=== PATIENT | male | born 1940 | race Caucasian/White ===

== ENCOUNTER 2023-08-02 11:10 | Outpatient (RCR) | payer MEDICARE, SELFPAY | END 2023-08-03 16:51 | disposition home or self-care (01) | LOC: OT 11:10 | PROVIDERS: PCP Orthopaedic Surgery; Visit Provider Orthopaedic Surgery | DX: M72.0 Palmar fascial fibromatosis [Dupuytren] (principal) | CPT/HCPCS: 97165; 97760 ==

== ENCOUNTER 2024-04-24 11:52 | Day surgery (SDC) | payer MEDICARE, SELFPAY ==
--- OUTSIDE RECORDS SUMMARY | 2024-04-24 12:09 | XMS_ITS | CCD ---
Author Organization [facility] CliniSynd Care Team Providers Care 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 Name Role Phone Chandrika SHELTON, Justin Munson Primary Care Provider Unavail able Unavailable Primary Care Provider Unavailmami Vergara MD, Margaux Shirlene Primary Care Provider Jai SHELTON, [facility] Primary Care Provider Erika Silveira Primary Care Physician Erika Montana Unavailable Unavailable ART HAYNES Referring Unavailable JAI, MARGAUX Shirlene Primary Care Unavailable JAI, MARGAUX Garber Primary Care Unavailable GLENN SAUCEDA Referring Unavailable Jai SHELTON, [facility] Primary Care Provider [phone] Radha Olvera MD Primary Care Provider Mario COMMUNITY SERVICE REPRESENTATIVE, [place] Reid Unavailable JAMAICA MARTIN Attending Unavailab le FELTERIKA BLOCK Attending Unavailable JAMAICA MARTIN Attending Unavailab le SERVICE, JOBSBirdie Referring Unavailable JAI, MARGAUX F Primary Care Unavailable SERVICE, JOBST Referring Unavailable JAI, MARGAUX Garber Primary Care Unavailable JAI, MARGAUX Garber Primary Care Unavailable JAI, MARGAUX F Referring Unavailable SERVICE, JOBST Referring Unavailable JAI, MARGAUX F Primary Care Unavailable SERVICE, JOBST Referring Unavailable JAI, MARGAUX F Primary Care Unavailable SERVICE, JOBST Referring Unavailable JAI, MARGAUX F Primary Care Unavailable SERVICE, JOBST Referring Unavailable JAI, MARGAUX F Primary Care Unavailable SERVICE, JOBST Referring Unavailable JAI, MARGAUX F Primary Care Unavailable JAI, MARGAUX F Referring Unavailable JAI, MARGAUX F Primary Care Unavailable MICI, SILVANA Attending Unavailable JAI, MARGAUX F Primary Care Unavailable MICI, SILVANA Referring Unavailable JAI, MARGAUX F Primary Care Unavailable MICI, SILVANA Attending Unavailable MICI, SILVANA Referring Unavailable Medications Current Medications Medication Drug Class(es) Dates Sig (Normalized) Sig (Original) acetaminophen 500 mg oral tablet (12 sources) take 1 tablet by mouth every six hours as needed for pain acetaminophen (TYLENOL) 500 mg tablet Take 1 tablet (500 mg total) by mouth every 6 (six) hours as needed for pain. As needed for pain Active ciprofloxacin 500 mg oral tablet (1 source) Quinolone Antimicrobial Start: 09-06-2020 End: 09-16-2020 take 1 tablet by mouth twice daily ciprofloxacin (CIPRO) 500 MG tablet Take 1 tablet by mouth 2 times daily for 10 days 20 tablet 0 09/06/2020 09/16/2020 Active furosemide 40 mg oral tablet (17 sources) Loop Diuretic Start: 09-25-2021 End: 04-06-2024 take 1 tablet by mouth once daily furosemide (LASIX) 40 mg tablet Indications: Chronic diastolic congestive heart failure (CMS-HCC) Take 1 tablet (40 mg total) by mouth daily. 90 tablet 3 04/06/2024 Active Start: 08-11-2019 take 1 tablet by jalyn twice daily furosemide (LASIX) 40 mg tablet Indications: Essential hypertension Take 1 tablet (40 mg total) by mouth 2 (two) times a day. 180 tablet 0 12/16/2022 Active metoprolol tartrate 50 mg oral tablet (17 sources) beta-Adrenergic Feng Start: 09-05-2019 End: 04-06-2024 take 1 tablet by mouth in the morning, then take 1 tablet by mouth at bedtime metoprolol tartrate (LOPRESSOR) 50 mg tablet Indications: Essential hypertension Take 1 tablet (50 mg total) by mouth in the morning and 1 tablet (50 mg total) before bedtime. 180 tablet 3 04/06/2024 Active tamsulosin hydrochloride 0.4 mg oral capsule (16 sources) alpha-Adrenergic Feng Start: 09-06-2020 take 1 capsule by mouth in the morning tamsulosin (FLOMAX) 0.4 mg capsule Take 1 capsule (0.4 mg total) by mouth in the morning. 09/06/2020 Active Start: 09-06-2020 take 1 capsule by mo uth in the morning tamsulosin (FLOMAX) 0.4 mg capsule Take 1 capsule (0.4 mg total) by mouth in the morning. 09/06/2020 Active Start: 09-06-2020 take 1 capsule by mo ut twice daily tamsulosin (FLOMAX) 0.4 MG capsule Take 1 capsule by mouth 2 times daily 60 capsule 3 09/06/2020 Active triamcinolone acetonide 0.001 mg/mg topical ointment (9 sources) Corticosteroid Start: 06-02-2023 triamcinolone (Kenalog) 0.1 % ointment Indications: Other atopic dermatitis Apply thin layer to affected areas on the body twice a day as needed for flares, hold if clear 454 g 2 06/02/2023 Active triamcinolone (K ENALOG) 0.1 % ointment Apply 1 Application topically in the morning and 1 Application before bedtime. Active warfarin sodium 5 mg oral tablet (16 sources) Vitamin K Antagonist Start: 07-29-2022 take 2 tablets by mouth once daily warfarin (COUMADIN) 5 mg tablet Indications: Paroxysmal atrial fibrillation (CMS-HCC) , Hx pulmonary embolism , senior care (current) use of anticoagulants Take 1 to 2 tablets (5mg to 10mg) by mouth daily as directed by Fabienne PERALES (Medication Therapy Management). 180 tablet 3 08/17/2023 Active Start: 05-30-2019 take 1-2 tablets by mouth in the evening warfarin (COUMADIN) 5 mg tablet Indications: Paroxysmal atrial fibrillation (CMS-HCC) , Hx pulmonary embolism , senior care (current) use of anticoagulants Take 1-2 tablets (5-10 mg total) by mouth in the evening. As directed by Fabienne PERALES (Medication Therapy Management).. 180 tablet 3 07/29/2022 Active Completed/Discontinued Medications Medication Drug Class(es) Dates Sig (Normalized) Sig (Original) collagenase clostridium histolyticum 0.9 mg injection (9 sources) collagenase clos tridium histo. (XIAFLEX) 0.9 mg recon soln 0.58 mg by intralesional route once. 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] Onset: 03-08-2019 03-08-2019 Chronic Congestive heart failure; nonhypertensive (20 sources) Chronic diastolic heart failure; Translations: [Chronic diastolic (congestive) heart failure] Onset: 12-22-2018 Resolved: 08-01-2019 12-22-2018 Chronic Coronary atherosclerosis and other heart disease (20 sources) Coronary arteriosclerosis; Translations: [Atherosclerotic heart disease of [place] coronary artery without angina pectoris] Onset: 12-22-2018 Resolved: 08-01-2019 12-22-2018 Chronic Disorders of lipid metabolism (20 sources) Hyperlipidemia; Translations: [Hyperlipidemia, unspecified] Onset: 12-22-2018 Resolved: 08-01-2019 03-14-2019 Chronic Essential hypertension (20 sources) Essential hypertension; Translations: [Essential (primary) hypertension] Onset: 12-22-2018 Resolved: 08-01-2019 12-22-2018 Chronic Genitourinary symptoms and ill-defined conditions (20 sources) Incomplete emptying of bladder; Translations: [Retention of urine, unspecified] Onset: 01-14-2011 Episodic Heart valve disorders (20 sources) Aortic valve stenosis; Translations: [Nonrheumatic aortic (valve) stenosis] Onset: 12-22-2018 Resolved: 08-01-2019 03-14-2019 Chronic Hyperplasia of prostate (20 sources) Benign prostatic hypertrophy with outflow obstruction; Translations: [Benign prostatic hyperplasia with lower urinary tract symptoms] Onset: 01-13-2017 Resolved: 08-01-2019 Chronic Other circulatory disease (1 source) Presence of other cardiac implants and grafts; Translations: [Presence of other cardiac implants and grafts] Onset: 06-04-2021 Chronic Other connective tissue disease (1 source) Pain in right arm Onset: 06-17-2023 Episodic Other connective tissue disease (1 source) Pain in left arm Onset: 06-17-2023 Episodic Other lower respiratory disease (14 sources) Dyspnea; Translations: [Shortness of breath] Onset: 01-12-2023 12-06-2020 Episodic Other nervous system disorders (1 source) Other disturbances of skin sensation Onset: 06-17-2023 Episodic Other screening for suspected conditions (not mental disorders or infectious disease) (2 sources) Patient encounter status; Translations: [Encounter for screening for malignant neoplasm of prostate] 01-17-2024 Episodic Pulmonary heart disease (20 sources) H/O: pulmonary embolus; Translations: [Personal history of pulmonary embolism] Onset: 12-22-2018 04-07-2023 Episodic Unclassified (1 source) Annual Exam Onset: 04-06-2024 Unclassified (1 source) Pre-op Exam Onset: 04-06-2024 Past or Other Problems Problem Classification Problem Date Documented Da te Episodic/Chronic Acute myocardial infarction (9 sources) Myocardial infarction; Translations: [Non-ST elevation (NSTEMI) myocardial infarction] Onset: 12-06-2018 Resolved: 12-22-2018 12-22-2018 Chronic Complication of device; implant or graft (14 sources) Mechanical complication of heart valve prosthesis; Translations: [Leakage of heart valve prosthesis, initial encounter] Onset: 12-19-2020 12-19-2020 Episodic Mood disorders (3 sources) Mood disorders Onset: 01-12-2023 Resolved: 01-17-2024 01-12-2023 Other aftercare (18 sources) Long-term current use of anticoagulant; Translations: [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] Onset: 04-14-2019 04-07-2023 Episodic Other aftercare (1 source) 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; Translations: [senior care (current) use of anticoagulants] Onset: 04-14-2019 Episodic Other diseases of kidney and ureters (1 source) Other obstructive and reflux uropathy; Translations: [Other obstructive and reflux uropathy] Onset: 01-13-2017 Episodic Phlebitis; thrombophlebitis and thromboembolism (14 sources) Deep venous thrombosis; Translations: [Acute embolism and thrombosis of unspecified deep veins of unspecified lower extremity] Onset: 12-22-2018 12-22-2018 Episodic Residual codes; unclassified (16 sources) History of repair of mitral valve; Translations: [Other specified postprocedural states] Onset: 06-04-2021 06-04-2021 Episodic Residual codes; unclassified (1 source) Other specified postprocedural states; Translations: [Other specified postprocedural states] Onset: 06-04-2021 Episodic Results Test Name Value Interpretation Reference Range Facility CBC AND AUTO DIFFon 04-12-19 ABSOLUTE BASOPHIL 0.0 X10E9/L Normal 0.0-0.[address] [facility] Comment on above: Performed By: #### C BCA #### [facility] ([id number]) [address], [address] [place] [address] ABSOLUTE NEUTROPHIL 3.0 X10E9/L Normal 1.5-6.6 [facility] Comment on above: Performed By: #### C BCA #### [facility] ([id number]) [address], [address] [place] [address] Basophils/100 WBC (Bld) 0.7 % Normal [facility] Comment on above: Performed By: #### C BCA #### [facility] ([id number]) [address], [address] [place] [address] Eosinophils (Bld) [#/Vol] 0.3 10*3/uL Normal 0.0-0.[address] [facility] Comment on above: Performed By: #### C BCA #### [facility] ([id number]) [address], [address] [place] [address] Eosinophils/100 WBC (Bld) 5.4 % Normal [facility] Comment on above: Performed By: #### C BCA #### [facility] ([id number]) [address], [address] [place] [address] Erythrocyte distribution width (RBC) [Ratio] 12.9 % Normal 11.5-15.[address] [facility] Comment on above: Performed By: #### C BCA #### [facility] ([id number]) [address], [address] [place] [address] Hematocrit (Bld) [Volume fraction] 45.3 % Normal 39-[address] [facility] Comment on above: Performed By: #### C BCA #### [facility] ([id number]) [address], [address] [place] [address] Hemoglobin (Bld) [Mass/Vol] 15.1 g/dL Normal 13.0-17.[address] [facility] Comment on above: Performed By: #### C BCA #### [facility] ([id number]) [address], [address] [place] [address] Lymphocytes (Bld) [#/Vol] 2.0 10*3/uL Normal 1.0-3.[address] [facility] Comment on above: Performed By: #### C BCA #### [facility] ([id number]) [address], [address] [place] [address] Lymphocytes/100 WBC (Bld) 33.0 % Normal [facility] Comment on above: Performed By: #### C BCA #### [facility] ([id number]) [address], [address] [place] [address] MCH (RBC) [Entitic mass] 32.1 pg Normal 27-[address] [facility] Comment on above: Performed By: #### C BCA #### [facility] ([id number]) [address] [place] [address] MCHC (RBC) [Mass/Vol] 33.3 g/dL Normal 32-[address] [facility] Comment on above: Performed By: #### C BCA #### [facility] ([id number]) [address], [address] [place] [address] MCV (RBC) [Entitic vol] 97 fL Normal 80-100 [facility] Comment on above: Performed By: #### C BCA #### [facility] ([id number]) [address], [address] [place] [address] Monocytes (Bld) [#/Vol] 0.7 10*3/uL Normal 0-0.[address] [facility] Comment on above: Performed By: #### C BCA #### [facility] ([id number]) [address], [address] [place] [address] Monocytes/100 WBC (Bld) 11.6 % Normal [facility] Comment on above: Performed By: #### C BCA #### [facility] ([id number]) [address], [facility] [address] [place] [address] Neutrophils/100 WBC (Bld) 49.3 % Normal [facility] Comment on above: Performed By: #### C BCA #### [facility] ([id number]) [address] [address] [place] [address] Platelet mean volume (Bld) [Entitic vol] 10.1 fL Normal 7-[address] [facility] Comment on above: Performed By: #### C BCA #### [facility] ([id number]) [address] [address] [place] [address] Platelets (Bld) [#/Vol] 207 10*3/uL Normal 150-[address] [facility] Comment on above: Performed By: #### C BCA #### [facility] ([id number]) [address] [address] [place] [address] RBC COUNT 4.70 X10E12/L Normal 4.10-5.[address] [facility] Comment on above: Performed By: #### C BCA #### [facility] ([id number]) [address] [address] [place] [address] WBC (Bld) [#/Vol] 6.1 10*3/uL Normal 4.0-11.0 [facility] Comment on above: Performed By: #### C BCA #### [facility] ([id number]) [address] [address] [place] [address] POCT EKGon 04-06-2024 [facility] POCT Protime / INRon 024 INR Coag (PPP) [Relative time] 2.1 {INR} Abnormal 0.8 - 1.2 [facility] Interpretation and review of laboratory results Abnormal [facility] POCT Protime / INRon 01-12-2 024 INR Coag (PPP) [Relative time] 2.3 {INR} Abnormal 0.8 - 1.2 [facility] Interpretation and review of laboratory results Abnormal [facility] Basic Metabolic Profon 11-03 Anion gap [Moles/Vol] 11 mmol/L Normal 9-17 [facility] Comment on above: Performed By: #### B MP #### [facility] [address] [place], [place] [address] Zoning Technician: Alex Velasquez MD BUN/CRE Ratio 21 High 9-20 [facility] Comment on above: Performed By: #### B MP #### [facility] [address] [place], [place] [address] Zoning Technician: Alex Velasquez MD Calcium [Mass/Vol] 8.9 mg/dL Normal 8.6-10.4 [facility] Comment on above: Performed By: #### B MP #### [facility] [address] [place] [address] Zoning Technician: Alex Velasquez MD Chloride [Moles/Vol] 101 mmol/L Normal 98-107 [facility] Comment on above: Performed By: #### B MP #### [facility] [address] [place], [place] [address] Zoning Technician: Alex Velasquez MD CO2 [Moles/Vol] 29 mmol/L Normal 20-31 [facility] Comment on above: Performed By: #### B MP #### [facility] [address] [place], [place] [address] Zoning Technician: Alex Velasquez MD Creatinine [Mass/Vol] 1.2 mg/dL Normal 0.7-1.2 [facility] Comment on above: Performed By: #### B MP #### [facility] [address] [place], [place] [address] Zoning Technician: Alex Velasquez MD GFR/1.73 sq M.predicted among non-blacks MDRD (S/P/Bld) [Vol rate/Area] 60 mL/min/{1.73_m2} Low >60 [facility] Comment on above: Result Comment: These results are not intended for use in patients <18 years of age. eGFR results are calculated without a race factor using the 2020 CKD-EPI equation. Careful clinical correlation is recommended, particularly when comparing to results calculated using previous equations. The CKD-EPI equation is less accurate in patients with extremes of muscle mass, extra-renal metabolism of creatine, excessive creatine ingestion, or following therapy that affects renal tubular secretion. Performed By: #### B MP #### [facility] [address] [place] [address] [place] [address] Zoning Technician: Alex Velasquez MD Glucose [Mass/Vol] 87 mg/dL Normal 70-99 [facility] Comment on above: Performed By: #### B MP #### [facility] [address] [place] [address] [address] [place], [place] [address] Zoning Technician: Alex Velasquez MD Potassium [Moles/Vol] 4.1 mmol/L Normal 3.7-5.3 [facility] Comment on above: Performed By: #### B MP #### [address] [place], [place] [address] Zoning Technician: Alex Velasquez MD Sodium [Moles/Vol] 141 mmol/L Normal 135-144 [facility] Comment on above: Performed By: #### B MP #### [facility] [address] [place], [place] [address] Zoning Technician: Alex Velasquez MD Urea nitrogen [Mass/Vol] 25 mg/dL High 8-23 [facility] Comment on above: Performed By: #### B MP #### [facility] [address] [place] [address] [place] [place], [place] [address] Zoning Technician: Alex Velasquez MD MAGNESIUMon 08-16-2023 Magnesium [Mass/Vol] 2.0 mg/dL Normal 1.8-2.6 [facility] Comment on above: Performed By: #### 1 [id number] #### [facility] ([id number]) [address] [facility] [place] [address] POCT Protime / INRon 06-01- 024 INR Coag (PPP) [Relative time] 2.4 {INR} Abnormal 0.8 - 1.2 [facility] Interpretation and review of laboratory results Abnormal [facility] Basic Metabolic Profon 05-06 Anion gap [Moles/Vol] 12 mmol/L Normal 9-17 [facility] Comment on above: Performed By: #### B MP #### [facility] [address] [place] [address] Zoning Technician: Alex Velasquez MD BUN/CRE Ratio 19 Normal 9-20 [facility] Comment on above: Performed By: #### B MP #### [facility] [address] [place], [place] [address] Zoning Technician: Alex Velasquez MD Calcium [Mass/Vol] 8.8 mg/dL Normal 8.6-10.4 [facility] Comment on above: Performed By: #### B MP #### [facility] [address] [place], [place] [address] Zoning Technician: Alex Velasquez MD Chloride [Moles/Vol] 104 mmol/L Normal 98-107 [facility] Comment on above: Performed By: #### B MP #### [facility] [address] [place], [place] [address] Zoning Technician: Alex Velasquez MD CO2 [Moles/Vol] 27 mmol/L Normal 20-31 [facility] Comment on above: Performed By: #### B MP #### [facility] [address] [place], [place] [address] Zoning Technician: Alex Velasquez MD Creatinine [Mass/Vol] 1.1 mg/dL Normal 0.7-1.2 [facility] Comment on above: Performed By: #### B MP #### [facility] [address] [place] [address] [place] [address] Zoning Technician: Alex Velasquez MD GFR/1.73 sq M.predicted among non-blacks MDRD (S/P/Bld) [Vol rate/Area] mL/min/{1.73_m2} Normal >60 [facility] Comment on above: Result Comment: These results are not intended for use in patients <18 years of age. eGFR results are calculated without a race factor using the 2020 CKD-EPI equation. Careful clinical correlation is recommended, particularly when comparing to results calculated using previous equations. The CKD-EPI equation is less accurate in patients with extremes of muscle mass, extra-renal metabolism of creatine, excessive creatine ingestion, or following therapy that affects renal tubular secretion. Performed By: #### B MP #### [facility] [address] [place] [address] [place] [address] Zoning Technician: Alex Velasquez MD Glucose [Mass/Vol] 124 mg/dL High 70-99 [facility] Comment on above: Performed By: #### B MP #### [address] [place], [place] [address] Zoning Technician: Alex Velasquez MD Potassium [Moles/Vol] 3.9 mmol/L Normal 3.7-5.3 [facility] Comment on above: Performed By: #### B MP #### [facility] [address] [place] [address] [address] [place], [place] [address] Zoning Technician: Alex Velasquez MD Sodium [Moles/Vol] 143 mmol/L Normal 135-144 [facility] Comment on above: Performed By: #### B MP #### [facility] [address] [place] [address] Dr[address] [place], [place] [id number] Zoning Technician: Alex Velasquez MD Urea nitrogen [Mass/Vol] 21 mg/dL Normal 8-23 [facility] Comment on above: Performed By: #### B #### [facility] [address] [place] [address] Zoning Technician: Alex Velasquez MD POCT Protime / INRon 024 INR Coag (PPP) [Relative time] 2.7 {INR} Abnormal 0.8 - 1.2 [facility] Interpretation and review of laboratory results Abnormal [facility] Basic Metabolic Panelon 10-27 Anion gap [Moles/Vol] 9 mmol/L 9 - 17 mmol/L [facility] [employer] Calcium [Mass/Vol] 9.3 mg/dL 8.6 - 10. 4 mg/dL [facility] [employer] Chloride [Moles/Vol] 102 mmol/L 98 - 10 7 mmol/L [facility] High CO2 [Moles/Vol] 29 mmol/L 20 - 31 mmol/L [facility] [facility] Creatinine [Mass/Vol] 1.2 mg/dL 0.7 - 1.2 mg/dL [facility] [employer] [facility] GFR/1.73 sq M.predicted MDRD (S/P/Bld) [Vol rate/Area] - [facility] Comment on above: These results are not intended for use in patients <18 years of age. eGFR results are calculated without a race factor using the 2020 CKD-EPI equation. Careful clinical correlation is recommended, particularly when comparing to results calculated using previous equations. The CKD-EPI equation is less accurate in patients with extremes of muscle mass, extra-renal metabolism of creatine, excessive creatine ingestion, or following therapy that affects renal tubular secretion. Glucose [Mass/Vol] 96 mg/dL 70 - 99 mg/dL [facility] Interpretation and review of laboratory results Abnormal [facility] Potassium [Moles/Vol] 4.0 mmol/L 3.7 - 5.3 mmol/L [facility] [employer] Sodium [Moles/Vol] 140 mmol/L 135 - 144 mmol/L [facility] [employer] Urea nitrogen [Mass/Vol] 26 mg/dL High 8 - 23 mg/d L [facility] Urea nitrogen/Creatinine [Mass ratio] 22 mg/mg High 9 - [address] [facility] [employer] Basic Metabolic PanelOrdered By: Glenn Sauceda on 01-09-2021 Anion gap [Moles/Vol] 11 mmol/L 9 - 17 mmol/L [employer] Phone: Calcium [Mass/Vol] 9.3 mg/dL 8.6 - 10. 4 mg/dL [employer] Phone: Chloride [Moles/Vol] 104 mmol/L 98 - 10 7 mmol/L [employer] Phone: CO2 [Moles/Vol] 23 mmol/L 20 - 31 mmol/L [employer] Phone: Creatinine [Mass/Vol] 1.23 mg/dL High 0.70 - 1.20 mg/dL [employer] Phone: GFR >60 >60 mL/min [employer] Phone: GFR Non- 57 mL/min Low >60 [employer] Phone: Glucose [Mass/Vol] 95 mg/dL 70 - 99 mg/dL [facility] [employer] Phone: Interpretation and review of laboratory results Abnormal [employer] Phone: Potassium [Moles/Vol] 4.1 mmol/L 3.7 - 5.3 mmol/L [facility] Phone: Sodium [Moles/Vol] 138 mmol/L 135 - 144 mmol/L [employer] Phone: Urea nitrogen (BldV) [Mass/Vol] 26 mg/dL High 8 - 23 mg/dL [employer] Phone: Urea nitrogen/Creatinine (Bld) [Mass ratio] 21 High [facility] Phone: [facility] Phone: Laboratory - Chemistry and C hemistry - challengeOrdered By: Glenn Sauceda on 01-09-2021 GFR/1.73 sq M.predicted MDRD (S/P/Bld) [Vol rate/Area] [employer] Phone: Comment on above: Average GFR for 70 o r more years old: 75 mL/min/1.73sq m Chronic Kidney Disease: <60 mL/min/1.73sq m Kidney failure: <15 mL/min/1.73sq m eGFR calculated using average adult body mass. Additional eGFR calculator available at: http://www.[employer]/multiple_crcl_2012.htm Stage 1: Some kidney damage normal GFR Stage 2: Mild kidney damage GFR 60-89 Stage 3: Moderate kidney damage GFR 30-59 Stage 4: Severe kidney damage GFR 15-29 Stage 5: Severe kidney damage GFR <15 ESRD - chronic treatment by dialysis or transplant Urinalysis with MicroscopicO rdered By: Art Haynes on 09-06-2020 - [employer] Work Phone: Amorphous, UA NOT REPORTED None [employer] Work Phone: Bacteria, UA 1+ Abnormal None [employer] Work Phone: Bilirubin Urine Negative NEGATIVE [employer] Work Phone: Casts UA NOT REPORTED /LPF [employer] Phone: Color, UA YELLOW YELLOW [employer] Work Phone: Crystals, UA NOT REPORTED None /HPF [employer] Work Phone: Epithelial Cells UA 0 TO 2 [employer] Phone: Glucose, Ur Negative NEGATIVE [employer] Work Phone: Interpretation and review of laboratory results Abnormal [employer] Phone: Ketones Ql (U) Negative NEGATIVE [employer] Work Phone: Leukocyte esterase Test strip Ql (U) TRACE Abnormal NEGATIVE [employer] Phone: Mucus, UA NOT REPORTED None [facility] Work Phone: Nitrite, Urine Positive Abnormal NEGATIVE [facility] Work Phone: Other Observations UA NOT REPORTED NOT REQ. [facility] Work Phone: pH, UA 6.0 [facility] Work Phone: Protein, UA Negative NEGATIVE [facility] Work Phone: RBC, UA None [facility] Work Phone: Renal Epithelial, UA NOT REPORTED 0 /HPF [facility] Work Phone: Specific [place], UA 1.020 [facility] Work Phone: Trichomonas, UA NOT REPORTED None [facility] Work Phone: Turbidity UA CLEAR CLEAR [facility] Work Phone: Urinalysis Comments NOT REPORTED [facility] Work Phone: Urine Hgb 1+ Abnormal NEGATIVE [facility] Work Phone: Urobilinogen, Urine Normal Normal [facility] Work Phone: WBC, UA 5 TO 10 [facility] Work Phone: Yeast, UA NOT REPORTED None [facility] Work Phone: [facility] Work Phone: PLATELET AGGREGATIONon 02-20 PLATELET AGGR SEE SEPARATE REPORT Normal [facility] Comment on above: Performed By: #### 9 0032 #### [facility] [address] [place] [address], [facility] Vital Signs Date Time Vital Sign Value Performing Clinician Antonio boone 04-06-2024 13:29-0500 Body height 182.9 cm [employer] Work Phone: [employer] 04-06-2024 13:29-0500 Body mass index (BMI) [Ratio] 27.26 kg/m2 [employer] PA-C Work Phone: [place] [employer] [facility] 04-06-2024 13:29-0500 Body weight 91.17 kg Silvana Mici PA-C Work Phone: [place] [employer] [facility] 04-06-2024 13:29-0500 Diastolic blood pressure 60 mm[Hg] Silvana Mici PA-C Work Phone: [place] [employer] [facility] 04-06-2024 13:29-0500 Heart rate 66 /min Silvana Mici PA-C Work Phone: [place] [employer] [facility] 04-06-2024 13:29-0500 Systolic blood pressure 90 mm[Hg] Silvana Mici PA-C Work Phone: [facility] 01-17-2024 13:03-0400 Body height 181.6 cm Jamaica Martin COMMUNITY SERVICE REPRESENTATIVE Work Phone: [facility] 01-17-2024 13:03-0400 Body mass index (BMI) [Ratio] 27.23 kg/m2 Jamaica Martin COMMUNITY SERVICE REPRESENTATIVE Work Phone: [facility] 01-17-2024 13:03-0400 Body weight 89.81 kg Jamaica Martin COMMUNITY SERVICE REPRESENTATIVE Work Phone: [facility] 01-17-2024 13:03-0400 Diastolic blood pressure 70 mm[Hg] Jamaica Martin COMMUNITY SERVICE REPRESENTATIVE Work Phone: [facility] 01-17-2024 13:03-0400 Heart rate 59 /min Jamaica Martin COMMUNITY SERVICE REPRESENTATIVE Work Phone: [facility] 01-17-2024 13:03-0400 Respiratory rate 18 /min Jamaica Martin COMMUNITY SERVICE REPRESENTATIVE Work Phone: [facility] 01-17-2024 13:03-0400 SaO2% (BldA) [Mass fraction] 96 % Jamaica Martin COMMUNITY SERVICE REPRESENTATIVE Work Phone: [facility] 01-17-2024 13:03-0400 Systolic blood pressure 122 mm[Hg] Jamaica Martin NP Work Phone: [facility] 06-17-2023 13:38-0400 Body height 179.83 cm [employer] 06-17-2023 13:38-0400 Body mass index (BMI) [Ratio] 28.82 kg/m2 [employer] 06-17-2023 13:38-0400 Body surface area Derived from formula 2.16 m2 [employer] 06-17-2023 13:38-0400 Body weight 93.21 kg [employer] 06-17-2023 13:38-0400 Diastolic blood pressure 70 mm[Hg] [employer] 06-17-2023 13:38-0400 Heart rate 76 /min [employer] 06-17-2023 13:38-0400 Systolic blood pressure 132 mm[Hg] [employer] Encounters Encounter Date Encounter Type Care Provider Facility Start: 04-19-2024 End: 04-20-2024 Telephone encounter [facility] Work Phone: [facility] Start: 04-12-2024 End: 04-12-2024 ambulatory [facility] Start: 04-06-2024 End: 04-06-2024 Office outpatient visit 25 minutes Silvana Bone PA-C Work Phone: [facility] Comment on above: S/p TAVR (transcathe ter aortic valve replacement), bioprosthetic (Primary Dx); S/P mitral valve clip implantation; Essential hypertension; Chronic diastolic congestive heart failure (CMS-HCC); Paroxysmal atrial fibrillation (CMS-HCC) Start: 04-06-2024 End: 04-06-[address]ARA [facility] Start: 04-05-2024 End: 04-05-2024 Telephone encounter Rayna Olmos CMA [facility] Start: 03-09-2024 End: 03-09-2024 Follow-up encounter [facility] Fab[facility] 1 [facility] Medication Therapy Management Comment on above: Paroxysmal atrial fi brillation ([facility]) (Primary Dx); Hx pulmonary embolism; 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 Start: 03-09-2024 End: 03-09-2024 ambulatory [facility] Start: 01-17-2024 End: 01-17-2024 Bamboo flowsheet Jamaica Martin COMMUNITY SERVICE REPRESENTATIVE Work Phone: [facility] Start: 01-17-2024 End: 01-17-2024 Bamboo flowsheet Jamaica Martin COMMUNITY SERVICE REPRESENTATIVE Work Phone: [facility] Start: 01-17-2024 End: 01-17-2024 Patient encounter procedure Jamaica Mratin COMMUNITY SERVICE REPRESENTATIVE Work Phone: [facility] Comment on above: Encounter for tania snow annual wellness visit in Medicare patient (Primary Dx); Abnormal platelet function ([facility]); Chronic congestive heart failure, unspecified heart failure type ([facility] Chronic diastolic congestive heart failure ([facility]); Coronary artery disease involving kluti kaah coronary artery of kluti kaah heart without angina pectoris ([facility]); Deep vein thrombosis (DVT) of proximal lower extremity, unspecified chronicity, unspecified laterality ([facility] Essential hypertension ([facility]); History of non-ST elevation myocardial infarction (NSTEMI) ([facility]); Benign prostatic hyperplasia without lower urinary tract symptoms; History of pulmonary embolism; Hyperlipidemia, unspecified hyperlipidemia type ([facility]); Incomplete bladder emptying; 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; Nonrheumatic aortic valve stenosis; Nonrheumatic mitral valve regurgitation; Paroxysmal atrial fibrillation ([facility]); Perivalvular leak of prosthetic heart valve, sequela; Platelet disorder ([facility]); S/P mitral valve clip implantation; S/p TAVR (transcatheter aortic valve replacement), bioprosthetic; SOB (shortness of breath); Urinary retention; Screening for prostate cancer; Other thrombophilia ([facility]) Start: 01-17-2024 End: 01-17-2024 ambulatory JAMAICA MARTIN Not Available Start: 01-13-2024 End: 01-13-2024 [facility] Start: 01-13-2024 End: 01-13-2024 Follow-up encounter [facility] 1 [facility] Medication Therapy Management Comment on above: Paroxysmal atrial fi brillation ([facility]) (Primary Dx); Hx pulmonary embolism; 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 Start: 12-22-2023 End: 12-22-2023 [facility] Start: 11-04-2023 End: 11-04-2023 [facility] Start: 10-27-2023 End: 10-27-2023 [facility] Start: 10-05-2023 End: 10-05-2023 ambulatory ERIKA FITZPATRICK Not Available Start: 09-22-2023 End: 09-22-2023 [facility] Start: 08-16-2023 End: 08-16-2023 [facility] Start: 07-29-2023 End: 07-29-2023 ambulatory JAMAICA MARTIN Not Available Start: 07-29-2023 End: 07-29-2023 [facility] Start: 06-30-2023 Telephone encounter Deanna Santiago RN [facility] Comment on above: Surgical Or Dental C learance Start: 06-17-2023 Split Srvc Erika eaton Other [facility] Office Start: 06-02-2023 End: 06-02-2023 Follow-up encounter [facility] 1 [facility] Medication Therapy Management Comment on above: Paroxysmal atrial fi brillation (CMS-HCC) (Primary Dx); Hx pulmonary embolism; senior care (current) use of anticoagulants Start: 06-02-2023 End: 06-02-2023 ambulatory [facility] Start: 05-06-2023 End: 05-06-2023 ambulatory MARGAUX Shirlene VERGARA [facility] Start: 04-07-2023 End: 04-07-2023 Follow-up encounter [facility] 1 [facility] Medication Therapy Management Comment on above: Paroxysmal atrial fi brillation (CMS-HCC) (Primary Dx); Hx pulmonary embolism; 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 Start: 11-05-2022 End: 11-05-2022 Subsequent hospital visit by physician Margaux Vergara MD Work Phone: [facility] Laboratory Comment on above: Incomplete bladder e mptying; BPH with obstruction/lower urinary tract symptoms; Urinary retention Start: 01-09-2021 End: 01-09-2021 Subsequent hospital visit by physician [facility] Comment on above: Incomplete bladder e mptying Start: 09-06-2020 End: 09-06-2020 Subsequent hospital visit by physician Justin Cobos MD [facility] Laboratory Comment on above: Incomplete bladder e mptying; BPH with obstruction/lower urinary tract symptoms Procedures Date Procedure Procedure Detail Performing Clinician Start: 04-06-2024 Ecg routine ecg w/le ast 12 lds w/i&r Silvana Mici PA-C Work Phone: Start: 03-09-2024 Prothrombin time [employer] Work Phone: Start: 01-13-2024 [employer]th[employer] Work Phone: Start: 06-17-2023 Nerve conduction jefe dies 9-10 studies Erika Silveira Start: 06-02-2023 Prothrombin time [employer] Work Phone: Start: 04-07-2023 Prothrombin time [employer] Work Phone: Start: 11-05-2022 Basic metabolic pane l calcium total Andrade Nam MD Work Phone: Start: 01-09-2021 Basic metabolic pane l calcium total Glenn D Sohail ELIZONDO Work Phone: Start: 09-06-2020 Urnls dip stick/tabl et reagent auto microscopy Art W [place] DIMENSIONAL ENGINEER - WIND ENERGY MECHANIC Work Phone: Plan of Treatment Date Care Activity Detail Author Start: 12-02-2029 DTaP,Tdap and Td Vaccines (2 - Td or Tdap) DTaP,Tdap and Td Vaccines (2 - Td or Tdap) [facility] Start: 12-02-2029 DTaP/Tdap/Td vaccine (2 - Td or Tdap) DTaP/Tdap/Td vaccine (2 - Td or Tdap) [facility] Start: 04-06-2025 Tobacco Screening Tobacco Screening [facility] Start: 01-16-2025 Medicare Annual Wellness (AWV) Medicare Annual Wellness (AWV) [facility] Start: 10-05-2024 End: 10-05-2024 Patient encounter procedure 10/05/2024 1:40 PM EDT [facility] [address] [place] [phone] Erika Fitzpatrick, DIMENSIONAL ENGINEER-WIND ENERGY MECHANIC [address] [place] [address] [facility] Start: 07-28-2024 Pneumococcal Vaccine: 65+ Years (1 of 2 - PCV) Pneumococcal Vaccine: 65+ Years (1 of 2 - PCV) [facility] Comment on above: Postponed from 1946 (Patient Refus ed) Start: 05-04-2024 End: 05-04-2024 Follow-up encounter 05/04/2024 9:30 AM EST Follow Up Anticoagulation [facility] Medication Therapy Management [address] [place] [address] [facility] Med[facility] Therapy Management Start: 04-11-2024 End: 04-11-2024 Patient encounter procedure 04/11/2024 2:00 PM EST Appointment [facility] [address] [place] [phone] Silvana Bone PA-C [address] [place] [address] [facility] Start: 04-06-2024 End: 04-06-2025 Echo complete W/O contrast Echo complete W/O contrast Echocardiography Routine S/p TAVR (transcatheter aortic valve replacement), bioprosthetic S/P mitral valve clip implantation Expected: 04/06/2024, Expires: 04/06/2025 [facility] Work Phone: Comment on above: Expected: 04/06/2024, Expires: Start: 04-06-2024 End: 04-06-2024 Patient encounter procedure 04/06/2024 1:30 PM EST Office Visit [facility] [address] [place] [phone] Silvana Bone PA-C [address] [place] [address] [facility] Start: 03-09-2024 End: 03-09-2024 Follow-up encounter 03/09/2024 9:45 AM EST Follow Up Anticoagulation [facility] Medication Therapy Management [address] [place] [address] [facility] Med[facility] Therapy Management Start: 01-29-2024 Adult BMI Screening Adult BMI Screening [facility] Start: 01-29-2024 Tobacco Screening Tobacco Screening [facility] Start: 01-17-2024 End: 01-16-2025 CBC W Auto Differential panel - Blood CBC and differential Lab Routine Encounter for initial annual wellness visit in Medicare patient Abnormal platelet function (CMS/HCC) Expected: 01/17/2024 (Approximate), Expires: 01/16/2025 [facility] Work Phone: Comment on above: Expected: 01/17/2024 (Approximate), Expi res: 01/16/2025 Start: 01-17-2024 End: 01-16-2025 Comprehensive metabolic 2000 panel - Serum or Plasma Comprehensive metabolic panel Lab Routine Encounter for initial annual wellness visit in Medicare patient Essential hypertension (CMS/HCC) Expected: 01/17/2024 (Approximate), Expires: 01/16/2025 [facility] Comment on above: Expected: 01/17/2024 (Approximate), Expi res: 01/16/2025 Start: 01-17-2024 End: 01-16-2025 Lipid 1996 panel - Serum or Plasma Lipid panel Lab Routine Encounter for initial annual wellness visit in Medicare patient Hyperlipidemia, unspecified hyperlipidemia type (CMS/HCC) Expected: 01/17/2024 (Approximate), Expires: 01/16/2025 [facility] Comment on above: Expected: 01/17/2024 (Approximate), Expi res: 01/16/2025 Start: 01-17-2024 End: 01-16-2025 Prostate specific Ag [Mass/volume] in Serum or Plasma PSA Lab Routine Encounter for initial annual wellness visit in Medicare patient Screening for prostate cancer Expected: 01/17/2024 (Approximate), Expires: 01/16/2025 [facility] Comment on above: Expected: 01/17/2024 (Approximate), Expi res: 01/16/2025 Start: 01-17-2024 End: 01-17-2024 Patient encounter procedure 01/17/2024 1:00 PM EDT Office Visit [facility] [address] [place] [phone] Jamaica Martin NP [address] [place] [address] Arrived [facility] Comment on above: Arrived Start: 01-13-2024 Medicare Annual Wellness (AWV) Medicare Annual Wellness (AWV) [facility] Start: 11-28-2023 COVID-19 Vaccine () COVID-19 Vaccine () [facility] Start: 11-28-2023 COVID-19 Vaccine ( season) COVID-19 Vaccine () [facility] Start: 11-28-2023 Influenza vaccination [facility] Start: 07-29-2023 End: 07-29-2023 Follow-up encounter 07/29/2023 10:30 AM EDT Follow Up Anticoagulation [facility] Medication Therapy Management [address] [place] [address] [facility] Medication Therapy Management Start: 06-02-2023 End: 06-02-2023 Follow-up encounter 06/02/2023 10:30 AM EST Follow Up Anticoagulation [facility] Medication Therapy Management [address] [place] [address] [facility] Therapy Management Start: 11-27-2022 COVID-19 Vaccine ( season) COVID-19 Vaccine () [facility] Start: 11-27-2022 Influenza vaccination Influenza Vaccine [facility] Start: 11-11-2022 End: 11-11-2022 Patient encounter procedure 11/11/2022 Office Visit Urology [facility] Start: 10-27-2022 Influenza vaccination Flu vaccine (#1) [facility] Start: 01-09-2022 Creatinine measurement [facility]inine [facility] Phone: Start: 01-09-2022 Potassium monitoring Potassium monitoring [facility] [employer] Phone: Start: 04-29-2021 COVID-19 Vaccine (3 - Booster for Migue series) COVID-19 Vaccine (3 - Booster for Migue series) [facility] Start: 01-13-2021 End: 01-13-2021 Patient encounter procedure 01/13/2021 Office Visit Urology Andrade Nam MD [address] [place] [address], [address] [place] [id number] [facility] Start: 11-27-2020 Influenza vaccination [employer] Phone: Start: 10-09-2020 End: 10-09-2020 Patient encounter procedure 10/09/2020 Office Visit Urology Glenn Sauceda PA-C [address] [place] [address] [facility] [place] [facility] Start: 09-23-2020 End: 09-23-2020 Patient encounter procedure 09/23/2020 Office Visit Urology Art Haynes, DIMENSIONAL ENGINEER - WIND ENERGY MECHANIC [address] [place] [address] [facility] [place] [facility] Start: 07-28-2019 Creatinine measurement Creatinine monitoring [employer] Phone: Start: 07-28-2019 Potassium monitoring Potassium monitoring [employer] Phone: Start: 09-18-2018 Annual Wellness Visit (AWV) Annual Wellness Visit (AWV) [employer] Start: 2005 Fall Risk Screening Fall Risk Screening [employer] Start: 2005 Pneumococcal 65+ years Vaccine (1 - PCV) Pneumococcal 65+ years Vaccine (1 - PCV) [employer] Start: 2005 Pneumococcal 65+ years Vaccine (1 of 1 - PPSV23) Pneumococcal 65+ years Vaccine (1 of 1 - PPSV23) [employer] Phone: Start: 1990 Administration of varicella zoster vaccine Zoster (Shingles) Vaccine (1 of 2) [employer] Start: 1990 Shingles Vaccine (1 of 2) Shingles Vaccine (1 of 2) [employer] Start: 1958 Adult BMI Follow Up Plan Adult [facility] Plan [facility] Start: 1952 Depression Screen Depression Screen [employer] Start: 1952 Depression Screening [facility] Screening [facility] Start: 1940 Medicare Annual Wellness Visit Medicare Annual Wellness Visit [employer] End: 04-06-2025 CBC W Auto Differential panel - Blood CBC auto differential Lab Routine S/p TAVR (transcatheter aortic valve replacement), bioprosthetic S/P mitral valve clip implantation Paroxysmal atrial fibrillation ([facility]) 1 Occurrences starting 04/06/2024 until 04/06/2025 [employer] Comment on above: 1 Occurrences starting 04/06/2024 until 04/06/2025 End: 09-06-2020 Culture, Urine Culture, Urine Microbiology Routine Incomplete bladder emptying BPH with obstruction/lower urinary tract symptoms 1 Occurrences starting 09/06/2020 until 09/06/2020 [employer] Phone: Comment on above: 1 Occurrences starting 09/06/2020 until 09/06/2020 Culture, Urine Culture, Urine Microbiology Routine Incomplete bladder emptying BPH with obstruction/lower urinary tract symptoms 09/06/2020 12:41 PM EDT [employer] Phone: Immunizations Immunization Date Immunization Notes Care Provider Fa [facility] 12-03-2019 tetanus toxoid, redu nickie diphtheria toxoid, and acellular pertussis vaccine, adsorbed [facility] 1 [employer] Payers Date Payer Category Payer Medicare [id number] 2005 Medicare [id number] 1940 Unknown [id number] 2.16.8 [id number] 1940 Unknown [id number] 2.16.8 [id number] 1940 Unknown [id number] 2.16.84 [id number] 1940 Unknown [id number] 2.16.84 [id number] 1940 Unknown [id number] 2.16.84 0.1.519896.3.579.2.9 1940 Unknown [id number] 2.16. [id number] 1940 Unknown [id number] 2.16. [id number] 1940 Unknown [id number] 2.16. [id number] 1940 Unknown [id number] 2.16.8 40.1.499713.3.579.2.1285 1940 Unknown [id number] 2.16.8 40.1.819803.3.579.2.1285 1940 Unknown [id number] 2.16.8 40.1.494409.3.579.2.1285 1940 Unknown [id number] 2.16.8 40.1.934042.3.579.2.1285 1940 Unknown [id number] 2.16.8 40.1.936635.3.579.2.1285 1940 Unknown [id number] 2.16.8 40.1.050862.3.579.2.1285 1940 Unknown [id number] 2.16.8 [id number] 1940 Unknown [id number] 2.16.8 [id number] Social History Date Type Detail Facility Start: 09-06-2020 End: 01-29-2022 Tobacco smoking status PRIS Former smoker [facility]EC[facility]IK[facility] [employer] Start: 03-29-1969 End: 03-29-1989 History of tobacco use Current smoker [employer] Start: 04-24-2020 End: 09-06-2020 Cigarettes smoked current (pack per day) - Reported [employer] Work Phone: Start: 09-06-2020 End: 01-29-2022 Tobacco use and exposure Never used [employer] Start: 09-06-2020 End: 01-17-2024 Alcohol intake Current drinker of alcohol (finding) [employer] Work Phone: Start: 01-19-2011 Alcohol Comment moderate [employer] Work Phone: Start: 1940 Sex Assigned At Not on file [employer] Work Phone: Start: 03-29-1969 End: 03-29-1989 History of tobacco use Cigarette Smoker [facility]ECILIA ANAND [employer] Start: 01-28-2023 End: 04-06-2024 Alcohol intake Ex-drinker (finding) [employer] Start: 04-24-2020 End: 01-28-2023 Tobacco use panel [facility] Housing Instability Unknown [facility] Start: *Tobacco [employer] Start: 11-01-2014 Sex Male (finding) [facility] Start: 01-12-2023 Alcohol Comment Alcohol: 6 or more drinks on one occasion /daily or almost daily , Caffeine: 1-2 cups per day coffee [facility] Start: 06-10-2022 Gender identity Identifies as male gender (finding) [facility] Medical Equipment Procedure Code Equipment Code Equipment Origin al Text Equipment Identifier Dates Vlv Transcth Sap [id number] 26mm - [id number] - [id number] Start: 04-12-2019 System Dlv Clip 4th Gnrtn Mitraclip Ntw - [id number] - [id number] FDA Start: 06-03-2021 Plug Cv 7mm 10mm Amplzr 135cm Ntnl Ty Ii Dlv Sys Slf Xpd 100 - [id number] FDA Start: 12-13-2020 Vlv Transcth Sap [id number] 26mm - [id number] - [id number] Start: 04-12-2019 Goals Date Patient Goal Desired Activity /State Personal health goal Comment on above: Formatting of this n ote might be different from the original. Evaluation of progress towards goal: Pt plans to discharge home with self care and with family support. Clinical Notes 04-07-2023 to 04-19-2024 Telephone Encounter - Marina Elizabeth - 04/19/2024 1:59 PM ESTTelephone Encounter - Russ Lopez RPH - 04/19/2024 1:59 PM ESTTelephone Encounter - Marina Elizabeth - 04/19/2024 1:59 PM EST Note Date & Type Note Facility 04-19-2024 Miscellaneous Notes Patient called to advise that he is having carpal tunnel surgery on Apr [address] Girard, and the doctor told him to check with PPMM to see when to stop warfarin and for how long. Please call at [phone]. Noted, since provider performing procedure did not request a hold [facility] Medication Management recommendation is to not stop warfarin for carpal tunnel procedures. Should continue with current dose as normal. [facility]24 Telephone encounter Note Patient called to advise that he is having carpal tunnel surgery on Apr [address] Girard, and the doctor told him to check with PPMM to see when to stop warfarin and for how long. Please call at [phone]. [facility] 04-19-2024 Telephone encounter Note Noted, since provider performing procedure did not request a hold [facility] Medication Management recommendation is to not stop warfarin for carpal tunnel procedures. Should continue with current dose as normal. [employer] Work Phone: 04-19-2024 Miscellaneous Notes Patient LVM to schedule appt. Supervisor [employer] LVM for patient to call back. documented in this encounter [employer] 04-19-2024 Telephone encounter Note Patient LVM to schedule appt. Supervisor [employer] LVM for patient to call back. [employer] 04-06-2024 History of Presen t illness Narrative Solis Cason Date of visit: 04/06/2024 Date of : 1940 Age: 83 y.o. Patient Active Problem List Diagnosis History of pulmonary embolus (PE) Coronary artery disease involving [place] coronary artery of [place] heart without angina pectoris Essential hypertension Chronic diastolic congestive heart failure ([facility]) DVT (deep venous thrombosis) ([facility]) Abnormal platelet function ([facility]) Aortic stenosis Hx pulmonary embolism BPH (benign prostatic hyperplasia) Hyperlipidemia SOB (shortness of breath) Nonrheumatic mitral valve regurgitation Paroxysmal atrial fibrillation ([facility]) senior care (current) use of anticoagulants S/p TAVR (transcatheter aortic valve replacement), 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 As needed for pain tamsulosin (FLOMAX) 0.4 mg capsule Take 1 capsule (0.4 mg total) by mouth in the morning. triamcinolone (KENALOG) 0.1 % ointment Apply 1 Application topically in the morning and 1 Application before bedtime. warfarin (COUMADIN) 5 mg tablet Take 1 to 2 tablets (5mg to 10mg) by mouth daily as directed by Fabienne PERALES (Medication Therapy Management). 180 tablet 3 collagenase clostridium histo. (XIAFLEX) 0.9 mg recon soln 0.58 mg by intralesional route once. Completed July repeat furosemide (LASIX) 40 mg tablet Take 1 tablet (40 mg total) by mouth daily. 90 tablet 3 metoprolol tartrate (LOPRESSOR) 50 mg tablet Take 1 tablet (50 mg total) by mouth in the morning and 1 tablet (50 mg total) before bedtime. 180 tablet 3 No current facility-administered medications for this visit. Chief Complaint Patient presents with Annual Exam Pre-op Exam History of Present Illness Solis Cason is an 83-year-old male with a past medical history of hypertension, chronic diastolic heart failure, prior mitral clip, TAVR Patient presents today for follow up, no complaints of chest pain, shortness of breath or dyspnea on exertion, no lightheadedness or near-syncope, is able to walk a few blocks without stopping or anginal complaints. No complaints of bleeding on the warfarin. No heart palpitations unable to tell that he is in atrial fibrillation. EKG today atrial fibrillation Past Medical History: Diagnosis Date Abnormal platelet function ([facility]) Aortic stenosis BPH (benign prostatic hyperplasia) CHF (congestive heart failure) ([facility]) Coronary artery disease without angina pectoris DVT (deep venous thrombosis) ([facility]) Enlarged prostate History of pulmonary embolus (PE) Hx pulmonary embolism Hyperlipidemia Hypertension Paravalvular leak (prosthetic valve) Visual impairment glasses No data recorded No data recorded No data recorded Past Surgical History: Procedure Laterality Date ATTEMPTED / Perc transcath closure paravalvular leak/aortic valve each addnl N/A 12/13/2020 Performed by Юлия Barton MD at [facility] CATARACT EXTRACTION, BILATERAL 05/27/2021 Coronary angiogram and right heart and left ventricular gram/pressure N/A 12/07/2018 Performed by Krzysztof Khan MD at [facility] Coronary angiogram only N/A 12/13/2020 Performed by Юлия Barton MD at [facility] INCLUDED/NOT CHARGED Intracardiac echocardiogram N/A 12/13/2020 Performed by Юлия Barton MD at [facility] Inject aortic root complete N/A 12/07/2018 Performed by Krzysztof Khan MD at [facility] INVASIVE CARDIOLOGY PROCEDURE 11/2018 did not do any surgery at that time due to platelet function Mitral clip N/A 06/03/2021 Performed by Юлия Barton MD at [facility] NASAL SEPTUM SURGERY 1969' PERC TRANSCATH CLOSURE PARAVALVULAR LEAK/AORTIC VALVE N/A 12/13/2020 Performed by Юлия Barton MD at [facility] TAVR PROCEDURE N/A 04/12/2019 Performed by Wilber Neal MD at [facility] TAVR PROCEDURE TRANS FEMORAL N/A 04/12/2019 Performed by Renan Kay MD at [facility] Family History Problem Relation Age of Onset Anesthesia problems Neg Hx Social History Socioeconomic History Marital status: Spouse name: Not on file Number of children: Not on file Years of education: Not on file Highest education level: Not on file Occupational History Not on file Tobacco Use Smoking status: Former Current packs/day: 0.00 Average packs/day: 0.5 packs/day for 20.0 years (10.0 ttl pk-yrs) Types: Cigarettes Start date: 1969 Quit date: 1989 Years since quittin.0 Smokeless tobacco: Never Vaping Use Vaping status: Never Used Substance and Sexual Activity Alcohol use: Not Currently Alcohol/week: 5.0 - 7.0 standard drinks of alcohol Types: 5 - 7 Cans of beer per week Drug use: Never Sexual activity: Defer Other Topics Concern Caffeine Use No Social History Narrative Not on file Social Drivers of Health Financial Resource Strain: Patient Declined (01/16/2024) Received from [facility] Overall Financial Resource Strain (CARDIA) Difficulty of Paying Living Expenses: Patient declined Food Insecurity: Patient Declined (01/16/2024) Received from [facility] Hunger Vital Sign Worried About Running Out of Food in the Last Year: Patient declined Ran Out of Food in the Last Year: Patient declined Transportation Needs: Patient Declined (01/16/2024) Received from [facility] PRAPARE - Transportation Lack of Transportation (Medical): Patient declined Lack of Transportation (Non-Medical): Patient declined Physical Activity: Patient Declined (01/16/2024) Received from [facility] Exercise Vital Sign Days of Exercise per Week: Patient declined Minutes of Exercise per Session: Patient declined Stress: Patient Declined (01/16/2024) Received from [facility] [place] [employer] - Occupational Stress Questionnaire Feeling of Stress : Patient declined Social Connections: Patient Declined (01/16/2024) Received from [facility] Social Connection and Isolation Panel [NHANES] Frequency of Communication with Friends and Family: Patient declined Frequency of Social Gatherings with Friends and Family: Patient declined Attends Alevism Services: Patient declined Active Member of Clubs or Organizations: Patient declined Attends Club or Organization Meetings: Patient declined Marital Status: Patient declined Interpersonal Safety: Not on file Housing Instability: Patient Declined (01/16/2024) Received from [facility] Housing Stability Vital Sign Unable to Pay for Housing in the Last Year: Patient declined Number of Times Moved in the Last Year: Not on file Homeless in the Last Year: Patient declined Review of Systems Review of Systems Constitutional: Negative for malaise/fatigue. HENT: Negative for nosebleeds. Respiratory: Negative for cough, sleep disturbances due to breathing and wheezing. Hematologic/Lymphatic: Does not bruise/bleed easily. Musculoskeletal: Negative for arthritis, joint pain, joint swelling, muscle cramps and muscle weakness. Gastrointestinal: Negative for bloating, abdominal pain, heartburn, nausea and vomiting. Neurological: Negative for dizziness, headaches, light-headedness, numbness, seizures, tremors, vertigo and weakness. Vascular: Negative for claudication and lower extremity wounds or ulcers. CARDIOVASCULAR: Please review HPI. Physical Examination General appearance: Alert, oriented and cooperative. In no acute distress. Skin: Warm and dry to touch. Head: Normocephalic, without obvious abnormality, atraumatic. Ears, Nose, Mouth, Throat: Throat clear without erythema or exudate Eyes: Conjunctivae unremarkable, EOM intact. Neck: No JVD Respiratory: Clear to auscultation bilaterally, no use of accessory muscles. Cardiovascular: Irregular rhythm, regular rate with normal S1 and S2 with soft systolic murmurs. Gastrointestinal: Soft, non-tender. Bowel sounds normal. Musculoskeletal: No peripheral edema. Neurologic: Oriented to time, person and place, affect appropriate. No focal/major motor defects noted. Psychiatric: Appropriate mood, memory and judgement. VITAL SIGNS: BP 90/60 Pulse 66 Ht 182.9 cm (6') Wt 91.2 kg (201 lb) BMI 27.26 kg/m Orders Placed or Reconciled This Encounter Medications metoprolol tartrate (LOPRESSOR) 50 mg tablet Sig: Take 1 tablet (50 mg total) by mouth in the morning and 1 tablet (50 mg total) before bedtime. Dispense: 180 tablet Refill: 3 furosemide (LASIX) 40 mg tablet Sig: Take 1 tablet (40 mg total) by mouth daily. Dispense: 90 tablet Refill: 3 Medications Discontinued During This Encounter Medication Reason metoprolol tartrate (LOPRESSOR) 50 mg tablet Reorder furosemide (LASIX) 40 mg tablet Reorder IMPRESSIONS/PLAN 1. S/p TAVR (transcatheter aortic valve replacement), bioprosthetic S/P 20 6 mm Cowan Jeanne 3 bioprosthetic valve, peak gradient 15, mean gradient 7 mild AR TTE 06/15/2022 -repeat echocardiogram to assess valve function -perivalvular leak status post closure 2. S/P mitral valve clip implantation - 3. Essential hypertension - 110/1 20s systolic at home over 80s, 90/60 today no complaints of lightheadedness 4. Chronic diastolic congestive heart failure ([facility]) - continue furosemide 40 mg once daily, currently euvolemic 5. Paroxysmal atrial fibrillation (CMS-HCC) - currently in atrial fibrillation, rate controlled on metoprolol -anticoagulated on warfarin INRs maintaining between 2 and 3 consistently -discuss if he would like to transitioned to Eliquis or Xarelto to call his insurance company to evaluate a calzada -yearly CBC pending 6. Planning on carpal tunnel release surgery -discussed if anticoagulation needs to be held or a risk stratification is required to call the office and we will gladly fill out his paperwork. 7. 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 Patient seen with Dr. Lane in the office TODAYS ORDERS Orders Placed This Encounter Procedures CBC auto differential Echo complete W/O contrast FOLLOW UP Return in about 1 year (around 04/06/2025). PCP: Margaux Vergara MD Referring Physician: Margaux Vergara MD [address] [place] [address] Silvana Bone PA-C 04/06/24 1448 documented in this encounter [employer] 04-06-2024 Instructions Silvana Bone PA-C - 04/06/2024 1:30 PM EST Can ask insurance company about eliquis or xarelto Echocardiogram when able to CBC when able to Follow up in one year documented in this encounter [facility] 04-06-2024 Miscellaneous Notes Addended by: RAYNA OLMOS on: 04/06/2024 04:17 PM Modules accepted: Orders documented in this encounter [facility] 04-06-2024 Note Addended by: Manpreet OLMOS on: 04/06/2024 04:17 PM Modules accepted: Orders [facility] 04-05-2024 Miscellaneous Notes Called patient to remind them to bring their most current copy of their medication list with them to their appt. Patient verbalizes understanding. documented in this encounter [facility] 04-05-2024 Telephone encounter Note Called patient to remind them to bring their most current copy of their medication list with them to their appt. Patient verbalizes understanding. [facility] 03-09-2024 History of Presen t illness Narrative 15 minute [id number] follow-up anticoagulation appointment. INR performed in office per protocol. INR 2.1 (goal range: 2.0-3.0). Patient reports: Taking warfarin dosing as documented. Missed or extra doses of warfarin: No Changes to medications: No Changes to lifestyle (diet / alcohol / smoking / activity): No Recent emergency department visit / hospitalization / health changes / new contraindication to current anticoagulant: No Signs/symptoms of bruising/bleeding or clotting or any intolerable adverse events: No Upcoming procedures: No Anticoagulant prescription needed: No Seen referring provider in the last year Duration of therapy reviewed Assessment: INR is remaining stable in therapeutic range on current warfarin regimen. Plan: Patient instructed to continue warfarin 5 mg daily. Check INR in 8 week(s). Patient verbalizes understanding of anticoagulant dosing instructions and information discussed. Dosing regimen, counseling, and follow-up appointment were provided to the patient. Patient reminded to call with questions or any medication changes. Patient instructed to seek medical attention if any major bleeding/bleeding that persists or worsens. Nataliia Sutherland RPH 03/09/24 0949 documented in this encounter [employer] 01-17-2024 History of Presen t illness Narrative Images from the original note were not included. Solis Cason is a 83 y.o. male presents with chief complaint of Medicare Annual Wellness Visit Subsequent HPI: Over the past 2 weeks, how often have you been bothered by any of the following problems? Little interest or pleasure in doing things: Not at all Feeling down, depressed, or hopeless: Not at all Patient Health Questionnaire-2 Score: 0 Over the past 2 weeks, how often have you been bothered by any of the following problems? Trouble falling or staying asleep, or sleeping too much: Not at all Feeling tired or having little energy: Not at all Poor appetite or overeating: Not at all Feeling bad about yourself - or that you are a failure or have let yourself or your family down: Not at all Trouble concentrating on things, such as reading the newspaper or watching television: Not at all Moving or speaking so slowly that other people could have noticed? Or the opposite - being so fidgety or restless that you have been moving around a lot more than usual.: Not at all Thoughts that you would be better off or hurting yourself in some way: Not at all Patient Health Questionnaire-9 Score: 0 [place] Fall Risk Secondary Diagnosis: No Health Risk Assessment Form Do you need help eating, bathing, using the toilet, dressing, or getting around your home?: No Can you prepare your own meals?: Yes Can you do your own housework without help?: Yes Can you shop for groceries or clothes without help?: Yes Do you exercise for about 20 minutes 3 or more days a week?: Yes How confident are you that you can control and manage most of your health problems?: Very confident Can you mange your money, credit cards and accounts, pay bills and taxes?: Yes Cognitive Screening Self Assessment: No overt cognitive deficiency is apparent by direct observation Three Word Registration: Banana, [place], Chair Clock Drawing: Normal Clock - 2 Three Word Recall: All 3 words correct - 3 Total Score (0-5 Points): 5 Pain Assessment Pain Score: 0 - No pain SUBJECTIVE: MEDICATIONS: ALLERGIES Current Outpatient Medications Medication Instructions acetaminophen (Tylenol) 500 MG tablet Every 6 hours collagenase clostridium histolyticum (XIAFLEX) 0.58 mg, Intra-lesional Flomax 0.4 mg, Daily furosemide (LASIX) 40 mg, Daily metoprolol tartrate (LOPRESSOR) 50 mg, 2 times daily triamcinolone (Kenalog) 0.1 % ointment Apply thin layer to affected areas on the body twice a day as needed for flares, hold if clear warfarin (COUMADIN) 5 mg, Daily RT No Known Allergies PAST MEDICAL HISTORY: SOCIAL HISTORY SURGICAL HISTORY: Past Medical History: Diagnosis Date BPH (benign prostatic hyperplasia) Deviated septum History of being hospitalized 11/2018 [facility] ER- trouble breathing and [facility]- Cardiac Unit Social History Tobacco Use Smoking status: Former Types: Cigarettes Smokeless tobacco: Never Substance Use Topics Alcohol use: Yes Alcohol/week: 3.0 standard drinks of alcohol Types: 3 Standard drinks or equivalent per week Comment: Alcohol: 6 or more drinks on one occasion /daily or almost daily , Caffeine: 1-2 cups per day coffee Drug use: Never Past Surgical History: Procedure Laterality Date AORTIC VALVE REPLACEMENT 04/12/2019 CT ANGIOGRAM ABDOMEN PELVIS 12/15/2018 CT ANGIOGRAM ABDOMEN PELVIS 12/15/2018 CT ANGIOGRAM HEART CORONARY 12/15/2018 CT ANGIOGRAM TAVR 12/15/2018 MOUTH SURGERY oral surgeries NASAL SEPTUM SURGERY 1974 Deviated septum REVIEW OF SYMPTOMS: Review of Systems Constitutional: Negative. Negative for chills and fatigue. HENT: Negative. Negative for ear discharge, ear pain, rhinorrhea and sore throat. Eyes: Negative. Negative for pain and redness. Respiratory: Negative. Negative for cough and chest tightness. Cardiovascular: Negative. Negative for chest pain and palpitations. Gastrointestinal: Negative. Negative for abdominal distention and abdominal pain. Genitourinary: Negative. Negative for difficulty urinating and frequency. Musculoskeletal: Negative. Negative for arthralgias and gait problem. Skin: Negative. Neurological: Negative. Negative for dizziness and numbness. Psychiatric/Behavioral: Negative. All other systems reviewed and are negative. Hematological: Negative. Endocrine: Negative. Allergic/Immunologic: Negative. OBJECTIVE: Vitals: 01/17/24 1303 BP: 122/70 Pulse: 59 Resp: 18 SpO2: 96% Physical Exam Vitals reviewed. Constitutional: Appearance: Normal appearance. HENT: Head: Normocephalic. Right Ear: Hearing and tympanic membrane normal. Left Ear: Hearing and tympanic membrane normal. Nose: Nose normal. Right Turbinates: Not enlarged. Left Turbinates: Not enlarged. Right Sinus: No maxillary sinus tenderness or frontal sinus tenderness. Left Sinus: No maxillary sinus tenderness or frontal sinus tenderness. Mouth/Throat: Lips: [place]. Mouth: Mucous membranes are moist. Pharynx: Oropharynx is clear. Uvula midline. Tonsils: No tonsillar exudate. Eyes: General: Lids are normal. Vision grossly intact. Gaze aligned appropriately. Extraocular Movements: Extraocular movements intact. Conjunctiva/sclera: Conjunctivae normal. Neck: Thyroid: No thyroid mass or thyromegaly. Vascular: No carotid bruit. Trachea: Trachea normal. Cardiovascular: Rate and Rhythm: Normal rate and regular rhythm. Pulses: Normal pulses. Heart sounds: Normal heart sounds. Pulmonary: Effort: Pulmonary effort is normal. Breath sounds: Normal breath sounds and air entry. Abdominal: General: Abdomen is flat. Bowel sounds are normal. Palpations: Abdomen is soft. Musculoskeletal: Cervical back: Full passive range of motion without pain, normal range of motion and neck supple. Lymphadenopathy: Cervical: No cervical adenopathy. Skin: General: Skin is warm. Capillary Refill: Capillary refill takes less than 2 seconds. Neurological: Mental Status: He is alert and oriented to person, place, and time. Sensory: Sensation is intact. Motor: Motor function is intact. Coordination: Coordination is intact. Psychiatric: Attention and Perception: Attention and perception normal. Mood and Affect: Mood and affect normal. Speech: Speech normal. Behavior: Behavior is cooperative. Thought Content: Thought content normal. ASSESSMENT AND PLAN: Assessment/Plan Diagnoses and all orders for this visit: Encounter for initial annual wellness visit in Medicare patient - CBC and differential; Future - PSA; Future - Lipid panel; Future - Comprehensive metabolic panel; Future Wellness performed at today. Height, weight, BMI, problem list, and immunizations records reviewed. Dental care discussed with patient. Encouraged annual vision screenings and semi-annual dental care. Abnormal platelet function (CMS/HCC-stable - CBC and differential; Future Chronic congestive heart failure, unspecified heart failure type (CMS/HCC)-stable follows with cardio Chronic diastolic congestive heart failure (CMS/HCC)-stable continue on current medications. Coronary artery disease involving [place] coronary artery of [place] heart without angina pectoris (CMS/HCC)-stable Deep vein thrombosis (DVT) of proximal lower extremity, unspecified chronicity, unspecified laterality (CMS/HCC)-stable Essential hypertension (CMS/HCC)-stable continue on current medications - Comprehensive metabolic panel; Future History of non-ST elevation myocardial infarction (NSTEMI) ([facility])-stable Benign prostatic hyperplasia without lower urinary tract symptoms History of pulmonary embolism Hyperlipidemia, unspecified hyperlipidemia type (CMS/HCC)-stable continue on current medications. 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 documented in this encounter [facility] 01-13-2024 History of Presen t illness Narrative 15 minute lerr-nc-befe follow-up anticoagulation appointment. INR performed in office per protocol. INR 2.3 (goal range: 2.0-3.0). Patient reports: Taking warfarin dosing as documented. Missed or extra doses of warfarin: No Changes to medications: No Changes to lifestyle (diet / alcohol / smoking / activity): No Recent emergency department visit / hospitalization / health changes / new contraindication to current anticoagulant: No Signs/symptoms of bruising/bleeding or clotting or any intolerable adverse events: No Upcoming procedures: No Anticoagulant prescription needed: No Seen referring provider in the last year Duration of therapy reviewed Assessment: INR is remaining stable in therapeutic range on current warfarin regimen. Plan: Patient instructed to continue warfarin 5 mg daily. Check INR in 8 week(s). Patient verbalizes understanding of anticoagulant dosing instructions and information discussed. Dosing regimen, counseling, and follow-up appointment were provided to the patient. Patient reminded to call with questions or any medication changes. Patient instructed to seek medical attention if any major bleeding/bleeding that persists or worsens. Nataliia Sutherland RPH 01/13/24 0953 documented in this encounter [employer] 06-30-2023 Miscellaneous Notes Surgeon: [facility] [place] [facility] Type of surgery: Xiaflex injection and Manipulation for Dupytrens Contracture Date of surgery: Pnding clearance Surgery location: [facility] Type of anesthesia: ? On a blood thinner?: Warfarin Indication? PAF & DVT On an antiplatelet?: N/A Date of last EK01/28/23 Their preference of how long to hold blood thinners/antiplatelet: Please hold at Cardiology discretion Last saw Dr. Hammond 01/28/23- Off until 07/12/[address] MUNOZ covering doctor Low moderate risk. No cardiac contraindication to proceeding with clinically indicated surgery. Routine monitoring. No objection to holding warfarin 4 days prior to procedure but would resume when able post procedure. Does not need to be bridged. F RS Note created and faxed [facility]-30-2023 Telephone encounter Note Surgeon: [facility] [place] [facility] Type of surgery: Xiaflex injection and Manipulation for Dupytrens Contracture Date of surgery: Pnding clearance Surgery location: [facility] Type of anesthesia: ? On a blood thinner?: Warfarin Indication? PAF & DVT On an antiplatelet?: N/A Date of last EK01/28/23 Their preference of how long to hold blood thinners/antiplatelet: Please hold at Cardiology discretion Last saw Dr. Hammond 01/28/23- Off until 07/12/[address] MUNOZ [facility] 06-30-2023 Telephone encounter Note Low moderate risk. No cardiac contraindication to proceeding with clinically indicated surgery. Routine monitoring. No objection to holding warfarin 4 days prior to procedure but would resume when able post procedure. Does not need to be bridged. F RS [employer] Work Phone: 06-30-2023 Telephone encounter Note [facility] 06-02-2023 History of Presen t illness Narrative 15 minute jtwa-tf-[id number] follow-up anticoagulation appointment. INR performed in office per protocol. INR 2.4 (goal range: 2.0-3.0). Patient reports: Taking warfarin dosing as documented. Missed or extra doses of warfarin: No Changes to medications: No Changes to lifestyle (diet / alcohol / smoking / activity): No Recent emergency department visit / hospitalization / health changes / new contraindication to current anticoagulant: No Signs/symptoms of bruising/bleeding or clotting or any intolerable adverse events: No Upcoming procedures: YES May have carpel tunnel surgery Anticoagulant prescription needed: No Seen referring provider in the last year Duration of therapy reviewed Assessment: INR is remaining stable in therapeutic range on current warfarin regimen. Plan: Patient instructed to continue warfarin 10 mg Sat and 5 mg AOD. Check INR in 8 week(s). Patient verbalizes understanding of anticoagulant dosing instructions and information discussed. Dosing regimen, counseling, and follow-up appointment were provided to the patient. Patient reminded to call with questions or any medication changes. Patient instructed to seek medical attention if any major bleeding/bleeding that persists or worsens Nataliia Sutherland [facility] 06/02/23 1057 documented [facility] this [facility] History of Presen t illness Narrative 15 minute jgfg-no-zowq follow-up anticoagulation appointment. INR performed in office per protocol. INR 2.7 (goal range: 2.0-3.0). Patient reports: Taking warfarin dosing as documented. Missed or extra doses of warfarin: No Changes to medications: No Changes to lifestyle (diet / alcohol / smoking / activity): No Recent emergency department visit / hospitalization / health changes / new contraindication to current anticoagulant: No Signs/symptoms of bruising/bleeding or clotting or any intolerable adverse events: No Upcoming procedures: No Anticoagulant prescription needed: No Seen referring provider in the last year Duration of therapy reviewed Assessment: INR is remaining stable in therapeutic range on current warfarin regimen. Plan: Patient instructed to continue warfarin 10 mg Sat and 5 mg AOD. Check INR in 8 week(s). Patient verbalizes understanding of anticoagulant dosing instructions and information discussed. Dosing regimen, counseling, and follow-up appointment were provided to the patient. Patient reminded to call with questions or any medication changes. Patient instructed to seek medical attention if any major bleeding/bleeding that persists or worsens. Nataliia Sutherland RPH 04/07/23 1037 [facility] Diagnosis Incomplete bladder emptying BPH with obstruction/lower urinary tract symptoms Hypertrophy of prostate with urinary obstruction and other lower urinary tract symptoms (LUTS) documented in this encounter [employer] Phone: evaluation note* Diagnosis Incomplete bladder emptying documented in this encounter [employer] Phone: evaluation note* Diagnosis Incomplete bladder emptying BPH with obstruction/lower urinary tract symptoms Hypertrophy of prostate with urinary obstruction and other lower urinary tract symptoms (LUTS) Urinary retention Retention of urine, unspecified documented in this encounter [facility]* Diagnosis Paroxysmal atrial fibrillation ([facility]-HCC)- Primary Atrial fibrillation Hx pulmonary embolism 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 Long-term (current) use of anticoagulants documented in this encounter [place] [employer] System[facility] note* Diagnosis Encounter for initial annual wellness visit in Medicare patient- Primary Abnormal platelet function ([facility]) Qualitative platelet defects Chronic congestive heart failure, unspecified heart failure type (CMS/HCC) Chronic diastolic congestive heart failure ([facility]/HCC) Coronary artery disease involving [place] coronary artery of [place] heart without angina pectoris ([facility]) Deep vein thrombosis (DVT) of proximal lower extremity, unspecified chronicity, unspecified laterality (CMS/HCC) Essential hypertension ([facility]/HCC) Unspecified essential hypertension History of non-ST elevation myocardial infarction (NSTEMI) ([facility]) Benign prostatic hyperplasia without lower urinary tract symptoms History of pulmonary embolism Personal history of venous thrombosis and embolism Hyperlipidemia, unspecified hyperlipidemia type ([facility]/HCC) Incomplete bladder emptying senior care (current) use of anticoagulants Long-term (current) use of anticoagulants Nonrheumatic aortic valve stenosis Nonrheumatic mitral valve regurgitation Paroxysmal atrial fibrillation (CMS/HCC) Atrial fibrillation Perivalvular leak of prosthetic heart valve, 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), bioprosthetic SOB (shortness of breath) Shortness of breath Urinary retention Unspecified retention of urine Screening for prostate cancer Special screening for malignant neoplasm of prostate Other thrombophilia ([facility]) [facility] this [facility] Diagnosis Paroxysmal atrial fibrillation (CMS-HCC)- Primary Atrial fibrillation Hx pulmonary embolism 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 Long-term (current) use of anticoagulants [facility]* Diagnosis S/p TAVR (transcatheter aortic valve replacement), bioprosthetic- Primary S/P mitral valve clip implantation Essential hypertension Unspecified essential hypertension Chronic diastolic congestive heart failure (CMS-HCC) Paroxysmal atrial fibrillation (CMS-HCC) Atrial fibrillation documented [facility] filedocumented in this encounter [facility]ructionsNot on filedocumented in this encounter [facility] SystemInstructionsNot on filedocumented in this encounter [facility] SystemInstructionsNot on filedocumented in this encounter [facility] Summary Purpose Family History No Family History Records FoundNo Family History Records FoundNo Family History Records FoundNo Family History Records Found Advance Directives Documents on File Type Date Recorded Patient Claims Examiner Expl 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 ACP-Advance Directive 01/19/2011 9:53 AM [employer] Contact Documents on File Type Date Recorded Patient Claims Examiner Expl anation ACP-Advance Directive 01/19/2011 9:53 AM M[employer] of Contact Documents on File Type Date Recorded Patient Claims Examiner Expl anation Advance Directive 03/08/2019 11:04 AM [facility] AD 03/07/19 Latest Code Status on File Code Status Date Activated Date Inactivated Comments Full Code 12/08/2018 3:06 PM 12/17/2018 6:44 PM Date Activated Date Inactivated Comments 12/08/2018 3:06 PM 12/17/2018 6:44 PM Documents on File Type Date Recorded Patient Claims Examiner Expl anation Advance Directive 03/08/2019 11:04 AM [facility] AD 03/07/19 Date Activated Date Inactivated Comments 12/08/2018 3:06 PM 12/17/2018 6:44 PM Additional Source Comments (unrecognized sect ion and content) No Status Records FoundNo Status Records FoundNo Status Records FoundNo Status Records Found INFORMATION SOURCE (unrecogn ized section and content) DATE CREATED AUTHOR 04/18/2019 [facility] DATE CREATED AUTHOR AUTHOR'S ORGANIZ ATION 11/07/2023 [facility] DATE CREATED AUTHOR AUTHOR'S ORGANIZ ATION 01/19/2024 [facility] EPIC DATE CREATED AUTHOR AUTHOR'S ORGANIZ ATION 04/15/2024 [facility] Care Teams (unrecognized sec tion and content) 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 Relationship Specialty Start Date End Date Margaux Vergara MD [address] [place] [address] PCP - General 07/16/22 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 Relationship Specialty Start Date End Date Margaux Vergara MD [address] [facility] [place] [address] PCP - General Family Medicine 12/21/18 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 Relationship Specialty Start Date End Date Margaux Vergara MD [address] [facility] [place] [address] PCP - General Family Medicine 12/21/18 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 Relationship Specialty Start Date End Date Margaux Vergara MD PCP - General Family Medicine 12/21/18 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 Relationship Specialty Start Date End Date Radha Olvera MD [address] [facility] [place] [address] PCP - General Family Medicine 08/27/22 Jamaica Martin NP [address] [facility] [place] [address] PCP - ACO Reach 05/28/23 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 Relationship Specialty Start Date End Date Radha Olvera MD [address] [facility] [place] [address] PCP - General Family Medicine 08/27/22 Jamaica Martin NP [address] [facility] [place] [address] PCP - ACO Reach 05/28/23 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 Relationship Specialty Start Date End Date Margaux Vergara MD PCP - General Family Medicine 12/21/18 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 Relationship Specialty Start Date End Date Margaux Vergara MD PCP - General Family Medicine 12/21/18 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 Relationship Specialty Start Date End Date Margaux Vergara MD PCP - General Family Medicine 12/21/18 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 Relationship Specialty Start Date End Date Margaux Vergara MD PCP - General Family Medicine 12/21/18 Reason for Visit (unrecogniz ed section and content) Reason Onset Date Comments Surgical Or Dental Clearance 06/30/2023 Reason Comments Medicare Annual Wellness Visit Subsequen t Reason Comments Annual Exam Pre-op Exam FOR RECORDS PERTAINING TO PATIENTS WHO ARE OR HAVE BEEN ENROLLED IN A CHEMICAL DEPENDENCY/SUBSTANCEABUSE PROGRAM, SOME INFORMATION MAY BE OMITTED. This clinical summary was aggregated from multiple sources. Caution should be exercised in using it in the provision of clinical care. This summary normalizes information from multiple sources, and as a consequence, information in this document may materially change the coding, format and clinical context of patient data. In addition, data may be omitted in some cases. CLINICAL DECISIONS SHOULD BE BASED ON THE PRIMARY CLINICAL RECORDS. [facility]. provides no warranty or guarantee of the accuracy or completeness of information in this document.
[2024-04-24] MEDS: CEFAZOLIN SODIUM 2 GM/50 ML D5W PREMIX IV (12:45)
[2024-04-24] MEDS: BUPIVACAINE HCL 0.5% PF 50 MG/10 ML VIAL 5 ML INJ (12:50)
[2024-04-24] MEDS: LIDOCAINE HCL 1%-EPINEPHRINE 1:100,000 10 ML MDV 5 ML INJ (12:50)
[2024-04-24 12:53] VITALS: PULSE 72; TEMP 36.3; O2SAT 95
--- NOTE | 2024-04-24 13:30 | PM.ORPRC ---
Procedure Note Date of procedure: 04/24/24 Pre-op diagnosis: Right carpal tunnel syndrome Post-op diagnosis: same as pre-op Procedure: Procedure: Right endoscopic carpal tunnel release Indications for Surgery: The patient has had signs and symptoms of carpal tunnel syndrome that have failed conservative treatment. Options were discussed with the patient as well as risks and benefits and they have elected to proceed with the surgery. Operative procedure: Prior to surgery the patient received IV antibiotics. The operative extremity was marked preoperatively. After informed consent was obtained the patient was brought to the operating room. In the preoperative area 5 mm 0.5% Marcaine plain with 5 mm 1% lidocaine with epinephrine were infiltrated in the operative sight. The arm was then prepped and draped in the usual sterile fashion after placement of a well padded tourniquet. The arm was elevated, exsanguinated, and the tourniquet was inflated. A 1 cm incision was then made in a preexisting distal wrist crease. Hemostasis was achieved with bipolar electrocautery. Blunt dissection was then carried down to the forearm fascia where a U-based flap was created. Proximally the fascia was incised for 2 cm under direct visualization. Attention was then turned to the endoscopic carpal tunnel release. The synovial elevator was used to clear the underside of the transverse carpal ligament of soft tissue. Sequential dilators were then placed. The endoscopic carpal tunnel released instrument was then placed. The transverse fibers were then identified and release from distal to proximal. The ligament was completely release. The tourniquet was deflated and hemostasis was achieved. The wound was irrigated and closed with a nylon suture. A sterile dressing was placed. The patient was brought to the recovery room. There were no preoperative or postoperative complications. Anesthesia: local Surgeon: Enrique Girard Estimated blood loss (mL): 0 Pathology: none sent Condition: stable Disposition: PACU
== END 2024-04-24 13:40 | disposition home or self-care (01) ==
PROVIDERS: PCP Family Medicine; Visit Provider Orthopaedic Surgery
PROC: (CPT 29848; principal; 2024-04-24 13:00)
DX: G56.01 Carpal tunnel syndrome, right upper limb (principal); I10 Essential (primary) hypertension; Z79.01 Long term (current) use of anticoagulants
CPT/HCPCS: 29848; J0665; J0690